=== PATIENT | female | born 1945 | race Caucasian/White ===

== ENCOUNTER 2019-04-13 14:18 | Observation (INO) | payer MEDICARE, BC ==
[~2019-04-13] VITALS: Ht 152.4 cm; Wt 93.6 kg
[~2019-04-13 14:18] MED LIST: ACIDOPHILUS1 EAC2 PO; ADVAIR 100-501 EACH INH; ALEVE220 M1 PO; ATORVASTATIN CA20 MG PO; BISOPROLOL FUMAR5 MG PO; CALTRATE 600 W1 EACH PO; CENTRUM SILVER1 EAC3 PO; DIOVAN HCT 1601 EACH PO; FERROUSUL325 MG PO; FISH OIL500 M1 PO; FLOVENT DISKUS50 MCG INH; FUROSEMIDE20 MG PO; IMODIUM2 MG PO; KLOR-CON 1010 MEQ PO; LOVENOX60 MG/0.6 SC; MERCAPTOPURINE50 MG PO; PRILOSEC OTC20 MG PO; PROAIR HFA INH8.5 GM INH; PROLIA60 MG/1 ML INJ; RYTHMOL SR325 MG PO; SINGULAIR10 MG PO; SUCRALFATE1 GM PO; SULFASALAZINE500 MG PO; TYLENOL325 MG PO; VITAMIN E1000 UNI1 PO; WARFARIN SODIUM3 MG PO
--- OUTSIDE RECORDS SUMMARY | 2019-04-13 14:20 | XMS REPORT | Clinical Summary ---
Author Author [facility] Organization [facility] Address Unknown Phone Unavailable Care Team Providers Care Bag Sewer Name Role Phone Ya Alicia MD PCP Allergies Comments Active Allergy Reactions Severity Noted Date Azithromycin Other (See 04/07/2017 Comments) Medications End Date Status Medication Sig Dispensed Refills Start Date Active BREO ELLIPTA 200-25 INHALE 1 PUFF 2 mcg/dose blister with BY MOUTH 7 device powder for EVERY DAY inhalation Active furosemide (LASIX) 40 mg TK 1 T PO 3 tablet BID 7 Active enoxaparin (LOVENOX) 80 0 mg/0.8 mL syringe 7 Active metoprolol tartrate TK 1 T PO BID 3 (LOPRESSOR) 100 mg tablet 7 Active montelukast (SINGULAIR) 0 10 mg tablet 7 Active potassium chloride TK 1 T PO 3 (K-DUR) 20 MEQ CR tablet BID 7 Active sulfaSALAzine Take 1,000 mg 3 (AZULFIDINE) 500 mg by mouth 2 7 tablet (two) times a day. Active INCRUSE ELLIPTA 62.5 INHALE 1 PUFF 2 mcg/actuation blister BY MOUTH 7 with device EVERY DAY Active beclomethasone 1 puff into 0 dipropionate (QNASL) 40 each nostril mcg/actuation HFA aerosol daily. inhaler Active propafenone SR (RYTHMOL Take 225 mg 0 SR) 225 MG 12 hr capsule by mouth 3 (three) times a day. Active warfarin (COUMADIN) 5 MG Take 1 tablet 30 tablet 0 tablet (5 mg total) 7 by mouth once daily for 30 days. Active Problems Not on file Family History Medical History Relation Name Comments Cancer Father Hyperlipidemia Father Asthma Mother Cancer Mother Heart disease Mother Hypertension Mother Relation Name Status Comments Father Mother Social History Date Tobacco Use Types Packs/Day Years Used Never Smoker Alcohol Use Drinks/Week oz/Week Comments No Sex Assigned at Date Recorded Not on file Industry Job Start Date Occupation Not on file Not on file Not on file Travel End Travel History Travel Start No recent travel history available. Last Filed Vital Signs Not on file Plan of Treatment Not on file Results Not on fileafter 04/12/2018 Insurance Type Payer Benefit Subscriber ID Effective Phone Address Plan / Dates Group Medicare MEDICARE MEDICARE xxxxxxxxxx 2010-P CANALES, PART A AND resent [place] B Indemnity BCBS BCBS xxxxxxxxxxxx 2012-P PAR/TRAD resent PLAN Advance Directives Patient has advance care planning documents on file. For more information, tracie brown contact: Jose D Carrero [address] [place] [address]
--- OUTSIDE RECORDS SUMMARY | 2019-04-13 14:21 | XMS REPORT ---
Author Author Bernard Redding Organization [employer] Address Unknown Phone Unavailable Care Team Providers Care Control Director Name Role Phone Bernard Redding CP Unavailable Allergies No Known Allergies Problems Problem Type Condition Code Onset Dates Condition Status Assessment Polyarthritis M13.0 Active Problem Vitamin D deficiency E55.9 Active Problem Osteoporosis M81.0 Active Problem Long-term use of high-risk medication Z79.899 Active Problem Osteopenia of multiple sites M85.89 Active Problem Polyarthritis M13.0 Active Problem Lumbago M54.5 Active Problem Inflammatory arthritis M19.90 Active Problem Polyarthralgia M25.50 Active Assessment Vitamin D deficiency E55.9 Active Assessment Long-term use of high-risk medication Z79.899 Active Assessment Osteoporosis M81.0 Active Assessment Inflammatory arthritis M19.90 Active Assessment Osteopenia of multiple sites M85.89 Active Assessment Polyarthralgia M25.50 Active Medications No Known Medications Results No Known Results Summary Purpose [employer] Submission
--- OUTSIDE RECORDS SUMMARY | 2019-04-13 14:21 | XMS REPORT ---
Author Author Christiane Angel [facility] [employer] Address Unknown Phone Unavailable Care Team Providers Care Crop Setting Out Machine Operator Name Role Phone Christiane Angel CP Unavailable Allergies No Known Allergies Problems Problem Type Condition Code Onset Dates Condition Status Problem Inflammatory arthritis M19.90 Active Problem Age related osteoporosis M81.0 Active Problem Long-term use of high-risk medication Z79.899 Active Problem Polyarthralgia M25.50 Active Problem Vitamin D deficiency E55.9 Active Problem Polyarthritis M13.0 Active Problem Lumbago M54.5 Active Medications Medication Code System Code Instructions Start Date End Date Status Dosage Methotrexate Sodium [facility] [address]-96 25 MG/ML Injection once a week Jun 15, 2018 Active inject 0.4 cc subcutaneously Folic Acid [facility] 78706361937 1 MG Orally Once a day Jun 15, 2018 Active 1 tablet Results No Known Results Summary Purpose [employer] Submission
--- OUTSIDE RECORDS SUMMARY | 2019-04-13 14:21 | XMS REPORT ---
Author Author Meena Herr [facility] [employer] Address Unknown Phone Unavailable Care Team Providers Care Chief Accountant Name Role Phone Meena Herr Unavailable Allergies, Adverse Reactions, Alerts Substance Reaction Event Type Levofloxacin Info Not Available Drug Allergy Erythromycin Info Not Available Drug Allergy Zithromax Info Not Available Non Drug Allergy vytorin Info Not Available Non Drug Allergy trilisate Info Not Available Non Drug Allergy univasc Info Not Available Non Drug Allergy Boniva Injection stomach upset Non Drug Allergy Forteo completed 2 year therapy Non Drug Allergy Ciprofloxacin, any macrolide abx Info Not Available Non Drug Allergy Problems Problem Type Condition Code Onset Dates Condition Status Assessment Long-term use of high-risk medication Z79.899 Active Assessment Inflammatory arthritis M19.90 Active Assessment Age related osteoporosis M81.0 Active Assessment Lumbago M54.5 Active Assessment Vitamin D deficiency E55.9 Active Problem Inflammatory arthritis M19.90 Active Problem Age related osteoporosis M81.0 Active Problem Long-term use of high-risk medication Z79.899 Active Problem Polyarthralgia M25.50 Active Problem Vitamin D deficiency E55.9 Active Problem Polyarthritis M13.0 Active Problem Lumbago M54.5 Active Medications Medication Code System Code Instructions Start Date End Date Status Dosage Breo Ellipta [facility] 48604108211 100-25 MCG/INH Inhalation Once a day Active 1 puff Incruse Ellipta [facility] 16575946612 62.5 MCG/INH Inhalation Once a day Active 1 puff Cranberry-Vitamin C [facility] 08774890046 4200 MG Orally Once a day Active 2 tablets Caltrate 600+D [facility] 07112817841 600-400 MG-UNIT Orally Once a day Active 1 tablet with food Flax Seed Oil [facility] 25439177512 1000 MG Orally Active as directed Prilosec [facility] 06422910985 20 MG Orally Once a day Active 1 capsule Singulair [facility] 44801277117 10 MG Orally Once a day Active 1 tablet in the evening Lopressor [facility] 83827281609 100 MG Orally Twice a day Active 1 tablet with food Vitamin D-3 ND 55429327047 5000 UNITS Orally Once a day Active 5 capsules Cyanocobalamin [facility] 16854868460 1000 MCG/ML Injection Active 1 ml Centrum Silver Ultra Womens [facility] 52079393870 Orally Active as directed Prolia [facility] 95752782986 60 MG/ML Subcutaneous Active as directed Fish Oil [facility] 92939006926 BID Active not defined Lasix ND 29533486470 40 MG Orally every other day Active 1 tablet Voltaren [facility] 90571135706 1 % Transdermal Four times a day December 19, 2017 Active 2 to 4 grams Klor-Con [address] [facility] 95856112707 10 MEQ Orally Every other day Active 1 tablet with food Sucralfate [facility] 71507012492 2 GM Orally Twice a day Active 1 tablet Azulfidine [facility] 65940468620 500 MG Orally TWICE A DAY Active 2 tablet Livalo [facility] 60904903864 2 MG Orally Once a day Active 1 tablet ProAir HFA [facility] 43087365084 108 (90 Base) MCG/ACT Inhalation PRN Active 2 puffs as needed Warfarin Sodium [facility] 64774419205 5 MG Orally Once a day Active 1 tablet Vitamin E [facility] 47009720998 1000 UNIT Orally Once a day Active 1 capsule Imodium A-D [facility] 04353858968 2 MG Orally PRN Active 1 tablet Probiotic Acidophilus [facility] 45272258731 Orally Active as directed Propafenone HCl [facility] 86123545470 225 MG Orally Three times a day Active 1 tablet Albuterol Sulfate HFA [facility] [address]-19 108 (90 Base) MCG/ACT Inhalation every 4 hrs Active 2 puffs as needed Ferrous Sulfate [facility] 05104346653 325 (65 Fe) MG Orally Once a day Active 1 tablet Vital Signs Date/Time: Sep 20, 2017 BMI 37.52 Index Weight 185.8 lbs Height 59 in Temperature 98.0 F Cardiac Monitoring Heart Rate 60 /min Blood Pressure Diastolic 72 mm Hg Blood Pressure Systolic 120 mm Hg Results No Known Results Summary Purpose [employer]ClinicalWorks Submission
--- OUTSIDE RECORDS SUMMARY | 2019-04-13 14:21 | XMS REPORT ---
Author Author Bernard Redding Organization [employer] Address Unknown Phone Unavailable Care Team Providers Care Rabbit Fancier Name Role Phone Bernard Redding CP Unavailable Allergies No Known Allergies Problems Problem Type Condition Code Onset Dates Condition Status Assessment Inflammatory arthritis M19.90 Active Problem Inflammatory arthritis M19.90 Active Problem Age related osteoporosis M81.0 Active Problem Long-term use of high-risk medication Z79.899 Active Problem Polyarthralgia M25.50 Active Problem Vitamin D deficiency E55.9 Active Problem Polyarthritis M13.0 Active Problem Lumbago M54.5 Active Medications Medication Code System Code Instructions Start Date End Date Status Dosage Voltaren [facility] 34140935556 1 % Transdermal Four times a day December 19, 2017 Active 2 to 4 grams Results No Known Results Summary Purpose [employer] Submission
--- OUTSIDE RECORDS SUMMARY | 2019-04-13 14:21 | XMS REPORT ---
Author Author Christiane Angel [facility] [employer] Address Unknown Phone Unavailable Care Team Providers Care Occasional Babysitter Name Role Phone Christiane Angel Unavailable Allergies, Adverse Reactions, Alerts Substance Reaction Event Type Levofloxacin Info Not Available Drug Allergy Erythromycin Info Not Available Drug Allergy Boniva Injection stomach upset Non Drug Allergy Forteo completed 2 year therapy Non Drug Allergy Ciprofloxacin, any macrolide abx Info Not Available Non Drug Allergy Zithromax Info Not Available Non Drug Allergy vytorin Info Not Available Non Drug Allergy trilisate Info Not Available Non Drug Allergy univasc Info Not Available Non Drug Allergy Problems Problem Type Condition Code Onset Dates Condition Status Assessment Long-term use of high-risk medication Z79.899 Active Assessment Age related osteoporosis M81.0 Active Assessment Inflammatory arthritis M19.90 Active Problem Inflammatory arthritis M19.90 Active Problem Age related osteoporosis M81.0 Active Problem Long-term use of high-risk medication Z79.899 Active Problem Polyarthralgia M25.50 Active Problem Vitamin D deficiency E55.9 Active Problem Polyarthritis M13.0 Active Problem Lumbago M54.5 Active Medications Medication Code System Code Instructions Start Date End Date Status Dosage Cyanocobalamin [facility] 16352184214 1000 MCG/ML Injection Active 1 ml Centrum Silver Ultra Womens [facility] 74921529865 Orally Active as directed Breo Ellipta [facility] 63707618467 100-25 MCG/INH Inhalation Once a day Active 1 puff Lopressor ND 93705802017 100 MG Orally Twice a day Active 1 tablet with food Singulair ND 76533680385 10 MG Orally Once a day Active 1 tablet in the evening Vitamin D-3 ND 92057688952 5000 UNITS Orally Once a day Active 5 capsules Livalo ND 20632673773 2 MG Orally Once a day Active 1 tablet Vitamin E ND 21236528396 1000 UNIT Orally Once a day Active 1 capsule Incruse Ellipta [facility] 32126343771 62.5 MCG/INH Inhalation Once a day Active 1 puff Probiotic Acidophilus [facility] 99800037420 Orally Active as directed Voltaren [facility] 63640315508 1 % Transdermal Four times a day December 19, 2017 Active 2 to 4 grams Sucralfate ND 71893639628 2 GM Orally Twice a day Active 1 tablet Cranberry-Vitamin C [facility] 06207065817 4200 MG Orally Once a day Active 2 tablets Imodium A-D [facility] 02555093567 2 MG Orally PRN Active 1 tablet Albuterol Sulfate HFA [facility] [address]-65 108 (90 Base) MCG/ACT Inhalation every 4 hrs Active 2 puffs as needed Warfarin Sodium ND 63203258615 5 MG Orally Once a day Active 1 tablet Azulfidine [facility] 00649446393 500 MG Orally three times A DAY Aug 08, 2018 Active 2 tablet Klor-Con [address] [facility] 15135796906 10 MEQ Orally Every other day Active 1 tablet with food ProAir HFA [facility] 88746420196 108 (90 Base) MCG/ACT Inhalation PRN Active 2 puffs as needed Ferrous Sulfate [facility] 91220842328 325 (65 Fe) MG Orally Once a day Active 1 tablet Flax Seed Oil [facility] 82149146167 1000 MG Orally Active as directed Caltrate 600+D [facility] 81442148500 600-400 MG-UNIT Orally Once a day Active 1 tablet with food Fish Oil [facility] 81938490622 BID Active not defined Lasix [facility] 56538389833 40 MG Orally every other day Active 1 tablet Prolia [facility] 54758323515 60 MG/ML Subcutaneous Active as directed Prilosec [facility] 44157502418 20 MG Orally Once a day Active 1 capsule Vital Signs Date/Time: April 10, 2018 BMI 37.10 Index Weight 190 lbs Height 60 in Temperature 98.0 F Cardiac Monitoring Heart Rate 64 /min Blood Pressure Diastolic 62 mm Hg Blood Pressure Systolic 122 mm Hg Results No Known Results Summary Purpose [employer]Works Submission
--- OUTSIDE RECORDS SUMMARY | 2019-04-13 14:21 | XMS REPORT ---
Author Author Bernard Redding Organization [employer] Address Unknown Phone Unavailable Care Team Providers Care Data Governance Consultant Name Role Phone Bernard Redding CP Unavailable Allergies No Known Allergies Problems Problem Type Condition Code Onset Dates Condition Status Problem Inflammatory arthritis M19.90 Active Problem Age related osteoporosis M81.0 Active Problem Long-term use of high-risk medication Z79.899 Active Problem Polyarthralgia M25.50 Active Problem Vitamin D deficiency E55.9 Active Problem Polyarthritis M13.0 Active Problem Lumbago M54.5 Active Medications No Known Medications Results No Known Results Summary Purpose [employer]Works Submission
--- OUTSIDE RECORDS SUMMARY | 2019-04-13 14:21 | XMS REPORT ---
Author Author Bernard Redding Organization [employer] Address Unknown Phone Unavailable Care Team Providers Care Pipe Insulator Helper Name Role Phone Bernadr Redding CP Unavailable Allergies No Known Allergies [...]
--- OUTSIDE RECORDS SUMMARY | 2019-04-13 14:21 | XMS REPORT | Continuity of Care Document ---
Author Author [facility] [employer] Address Unknown Phone Unavailable Care Team Providers Care Supply Chain Logistics Manager Name Role Phone [employer] Unavailable Unavailable Problems Problem Status Onset Date Classification Date Reported Comments Source Inflammatory arthritis Active Problem 03/30/2019 Vikram Redding Age related osteoporosis Active Diagnosis 10/27/2018 Vikram Redding Long-term use of high-risk medication Active Problem 03/30/2019 Vikram Redding Polyarthralgia Active Problem 03/30/2019 Vikram Redding Vitamin D deficiency Active Problem 03/30/2019 Vikram Redding Polyarthritis Active Diagnosis 03/30/2019 Vikram Redding Lumbago Active Problem 03/30/2019 Vikram Redding Osteoporosis Active Problem 03/30/2019 Vikram Redding Osteopenia of multiple sites Active Problem 03/30/2019 Vikram Redding Medications Medication Details Route Status Patient Instructions Ordering Provider Order Date Source Azulfidine 2 tablet Orally Active 500 MG Orally three times A DAY Jeanne 08/08/2018 Vikram Redding Methotrexate Sodium inject 0.4 cc subcutaneously Injection Active 25 MG/ML Injection once a week Jeanne 06/15/2018 Vikram Redding Folic Acid 1 tablet Orally Active 1 MG Orally Once a day Jeanne 06/15/2018 Vikram Redding Voltaren 2 to 4 grams Transdermal Active 1 % Transdermal Four times a day Jeanne 12/19/2017 Vikram Redding Cyanocobalamin 1 ml Injection Active 1000 MCG/ML Injection Jeanne Vikram Redding Centrum Silver Ultra Womens as directed Orally Active Orally Jeanne Vikram Redding Breo Ellipta 1 puff Inhalation Active 100-25 MCG/INH Inhalation Once a day Jeanne Vikram Redding Lopressor 1 tablet with food Orally Active 100 MG Orally Twice a day Jeanne Vikram Redding Singulair 1 tablet in the evening Orally Active 10 MG Orally Once a day Jeanne Vikram Redding Vitamin D-3 5 capsules Orally Active 5000 UNITS Orally Once a day Jeanne Vikram Redding Livalo 1 tablet Orally Active 2 MG Orally Once a day Jeanne Vikram Redding Vitamin E 1 capsule Orally Active 1000 UNIT Orally Once a day Jeanne Vikram Redding Incruse Ellipta 1 puff Inhalation Active 62.5 MCG/INH Inhalation Once a day Jeanne Vikram Redding Probiotic Acidophilus as directed Orally Active Orally Jeanne Vikram Redding Sucralfate 1 tablet Orally Active 2 GM Orally Twice a day Jeanne Vikram Redding Cranberry-Vitamin C 2 tablets Orally Active 4200 MG Orally Once a day Jeanne Vikram Redding Imodium A-D 1 tablet Orally Active 2 MG Orally PRN Jeanne Vikram Redding Albuterol Sulfate HFA 2 puffs as needed Inhalation Active 108 (90 Base) MCG/ACT Inhalation every 4 hrs Jeanne Vikram Redding Warfarin Sodium 1 tablet Orally Active 5 MG Orally Once a day Jeanne Vikram Redding Klor-Con 10 1 tablet with food Orally Active 10 MEQ Orally Every other day Jeanne Vikram Redding ProAir HFA 2 puffs as needed Inhalation Active 108 (90 Base) MCG/ACT Inhalation PRN Jeanne Vikram Redding Ferrous Sulfate 1 tablet Orally Active 325 (65 Fe) MG Orally Once a day Jeanne Vikram Redding Flax Seed Oil as directed Orally Active 1000 MG Orally Jeanne Vikram Redding Caltrate 600+D 1 tablet with food Orally Active 600-400 MG-UNIT Orally Once a day Jeanne Vikram Redding Fish Oil not defined NA Active BID Jeanne Vikram Redding Lasix 1 tablet Orally Active 40 MG Orally every other day Jeanne Vikram Redding Prolia as directed Subcutaneous Active 60 MG/ML Subcutaneous Jeanne Vikram Redding Prilosec 1 capsule Orally Active 20 MG Orally Once a day Jeanne Vikram Redding Azulfidine 2 tablet Orally Active 500 MG Orally TWICE A DAY Jeanne Vikram Redding Propafenone HCl 1 tablet Orally Active 225 MG Orally Three times a day Nemesio Redding Methotrexate Sodium inject 0.4 cc subcutaneously Injection Active 25 MG/ML Injection once a week Jeanne Vikram Redding Levaquin 1 tablet Orally Active 500 MG Orally Once a day Jeanne Vikram Redding Folic Acid 1 tablet Orally Active 1 MG Orally Once a day Jeanne Vikram Redding Escitalopram Oxalate 1 tablets Orally Active 5 MG Orally Once a day Jeanne Vikram Redding Folic Acid TAKE 1 TABLET BY MOUTH EVERY DAY NA Active 1 MG Jeanne Vikram Redding Melatonin 1 tablet at bedtime as needed with food Orally Active 3 MG Orally Once a day Jeanne Vikram Redding Allergies, Adverse Reactions, Alerts Substance Category Reaction Severity Reaction type Status Date Reported Comments Source Levofloxacin Adverse Reaction Info Not Available Adverse Reaction Active 10/18/2018 Vikram Redding Erythromycin Adverse Reaction Info Not Available Adverse Reaction Active 10/18/2018 Vikram Redding Boniva Injection Adverse Reaction stomach upset Adverse Reaction Active 10/18/2018 Vikram Redding Forteo Adverse Reaction completed 2 year therapy 2000's Adverse Reaction Active 10/18/2018 Vikram Redding Ciprofloxacin, any macrolide abx Adverse Reaction Info Not Available Adverse Reaction Active 10/18/2018 Vikram Redding Zithromax Adverse Reaction Info Not Available Adverse Reaction Active 10/18/2018 Vikram Redding vytorin Adverse Reaction Info Not Available Adverse Reaction Active 10/18/2018 Vikram Redding trilisate Adverse Reaction Info Not Available Adverse Reaction Active 10/18/2018 Vikram Redding univasc Adverse Reaction Info Not Available Adverse Reaction Active 10/18/2018 Vikram Redding Immunizations No Data Provided for This Section Results No Data Provided for This Section Pathology Reports No Data Provided for This Section Diagnostic Reports No Data Provided for This Section Consultation Notes No Data Provided for This Section Discharge Summaries No Data Provided for This Section History and Physicals No Data Provided for This Section Vital Signs Vital Sign Value Date Comments Source Weight 192.3 10/18/2018 Vikram Redding Height 61 10/18/2018 Vikram Redding Temperature Oral (F) 97.0 F 10/18/2018 Vikram Redding Heart Rate 60 10/18/2018 Vikram Redding Diastolic (mm Hg) 60 10/18/2018 Vikram Redding Systolic (mm Hg) 124 10/18/2018 Vikram Redding Weight 187 07/11/2018 Vikram Redding Height 69 07/11/2018 Vikram Redding Temperature Oral (F) 97.8 F 07/11/2018 Vikram Redding Heart Rate 60 07/11/2018 Vikram Redding Diastolic (mm Hg) 68 07/11/2018 Vikram Redding Systolic (mm Hg) 120 07/11/2018 Vikram Redding Weight 190 04/10/2018 Vikram Redding Height 60 04/10/2018 Vikram Redding Temperature Oral (F) 98.0 F 04/10/2018 Vikram Redding Heart Rate 64 04/10/2018 Vikram Redding Diastolic (mm Hg) 62 04/10/2018 Vikram Redding Systolic (mm Hg) 122 04/10/2018 Vikram Redding Weight 185.8 09/20/2017 Vikram Redding Height 59 09/20/2017 Vikram Redding Temperature Oral (F) 98.0 F 09/20/2017 Vikram Redding Heart Rate 60 09/20/2017 Vikram Redding Diastolic (mm Hg) 72 09/20/2017 Vikram Redding Systolic (mm Hg) 120 09/20/2017 Vikram Redding Encounters No Data Provided for This Section Procedures No Data Provided for This Section Assessment and Plan No Data Provided for This Section Plan of Care No Data Provided for This Section Social History No Data Provided for This Section Family History No Data Provided for This Section Advance Directives No Data Provided for This Section Functional Status No Data Provided for This Section
--- OUTSIDE RECORDS SUMMARY | 2019-04-13 14:21 | XMS REPORT ---
Author Author Christiane Angel [facility] eClinicalWorks Address Unknown Phone Unavailable Care Team Providers Care [employer] Name Role Phone Christiane Angel Unavailable Allergies, [...] Status Assessment Inflammatory arthritis M19.90 Active Problem Vitamin D deficiency E55.9 Active Assessment Age related osteoporosis M81.0 Active Assessment Long-term use of high-risk medication Z79.899 Active Problem Osteoporosis M81.0 Active Problem Long-term use of high-risk medication Z79.899 Active Problem Osteopenia of multiple sites M85.89 Active Problem Polyarthritis M13.0 Active Problem Lumbago M54.5 Active Problem Inflammatory arthritis M19.90 Active Problem Polyarthralgia M25.50 Active Medications Medication Code System Code Instructions Start Date End Date Status Dosage Fish Oil [facility] 29516623453 BID Active not defined Prilosec [facility] 25573787162 20 MG Orally Once a day Active 1 capsule Prolia [facility] 99588482860 60 MG/ML Subcutaneous Active as directed Escitalopram Oxalate ND 51089095784 5 MG Orally Once a day Active 1 tablets Klor-Con 10 [facility] 13495844127 10 MEQ Orally Every other day Active 1 tablet with food Warfarin Sodium [facility] 52812547428 5 MG Orally Once a day Active 1 tablet Centrum Silver Ultra Womens [facility] 33873499347 Orally Active as directed Singulair [facility] 71706778020 10 MG Orally Once a day Active 1 tablet in the evening Methotrexate Sodium [facility] [address]-64 25 MG/ML Injection once a week Active inject 0.4 cc subcutaneously Vitamin D-3 [facility] 59300747642 5000 UNITS Orally Once a day Active 5 capsules Breo Ellipta [facility] 31352859929 100-25 MCG/INH Inhalation Once a day Active 1 puff Incruse Ellipta [facility] 74290257589 62.5 MCG/INH Inhalation Once a day Active 1 puff Albuterol Sulfate HFA [facility] [address]-98 108 (90 Base) MCG/ACT Inhalation every 4 hrs Active 2 puffs as needed Vitamin E [facility] 02793994909 1000 UNIT Orally Once a day Active 1 capsule Lasix [facility] 05395533652 40 MG Orally every other day Active 1 tablet Caltrate 600+D [facility] 71536116079 600-400 MG-UNIT Orally Once a day Active 1 tablet with food Folic Acid [facility] 05395562696 1 MG Active TAKE 1 TABLET BY MOUTH EVERY DAY Probiotic Acidophilus [facility] 44437426383 Orally Active as directed Cyanocobalamin [facility] 44097713032 1000 MCG/ML Injection Active 1 ml Azulfidine [facility] 40334338401 500 MG Orally TWICE A DAY Active 2 tablet Melatonin [facility] 01084718978 3 MG Orally Once a day Active 1 tablet at bedtime as needed with food Ferrous Sulfate [facility] 16627594608 325 (65 Fe) MG Orally Once a day Active 1 tablet Livalo [facility] 85547784775 2 MG Orally Once a day Active 1 tablet Levaquin [facility] 29764883924 500 MG Orally Once a day Active 1 tablet Cranberry-Vitamin C [facility] 82571072147 4200 MG Orally Once a day Active 2 tablets Flax Seed Oil [facility] 21909213560 1000 MG Orally Active as directed Lopressor [facility] 75719647725 100 MG Orally Twice a day Active 1 tablet with food Sucralfate [facility] 31045028925 2 GM Orally Twice a day Active 1 tablet Imodium A-D [facility] 77618684332 2 MG Orally PRN Active 1 tablet ProAir HFA [facility] 53438985590 108 (90 Base) MCG/ACT Inhalation PRN Active 2 puffs as needed Vital Signs Date/Time: Oct 18, 2018 BMI 36.33 Index Weight 192.3 lbs Height 61 in Temperature 97.0 F Cardiac Monitoring Heart Rate 60 /min Blood Pressure Diastolic 60 mm Hg Blood Pressure Systolic 124 mm Hg Results Name Result Date Reference Range Unit Abnormality Flag SEDIMENTATION RATE ----SEDIMENTATION RATE 8 [id number] 0-20 MM/HOUR CBC W/AUTO DIFF ----PLATELET COUNT 233 39647171 130-400 K/UL ----MCV 95.2 20217073 80.0-100.0 fL ----HEMATOCRIT 39.8 31256824 34.0-45.0 % ----BASOPHILS 0.6 57199724 0.0-2.0 % ----MCHC 33.7 08310786 32.0-35.5 G/DL ----EOSINOPHILS 2.5 31516070 0.0-7.0 % ----MCH 32.1 82082981 27.0-34.0 PG ----MONOCYTES 9.1 79599251 4.0-13.0 % ----WBC 6.5 32207879 4.0-11.0 K/UL ----HEMOGLOBIN 13.4 11193935 11.5-15.5 G/DL ----RBC 4.18 81014538 3.80-5.10 M/UL ----LYMPHOCYTES 19.7 80208675 19.0-48.0 % ----RDW 13.3 55467567 11.0-15.0 % ----NEUTROPHILS 68.1 49046803 40.0-74.0 % VITAMIN D, 25 OH ----VITAMIN D, 25 OH 71 20181018 SEE BELOW NG/ML COMPREHENSIVE METABOLIC PANEL ----SODIUM 140 75564064 133-146 MEQ/L ----CALC BUN/CREAT 21 20181018 6-28 RATIO ----CHLORIDE 102 97984925 95-107 MEQ/L ----POTASSIUM 4.7 09836307 3.5-5.4 MEQ/L ----CALCIUM 9.0 52552877 8.5-10.5 MG/DL ----PROTEIN, TOTAL 6.3 73630834 6.1-8.3 G/DL ----CARBON DIOXIDE 27 20181018 19-31 MEQ/L ----CALC A/G RATIO 1.6 20181018 1.0-2.6 RATIO ---- eGFR AMER. 100 58622090 >60 ML/MIN/1.73 ----BILIRUBIN, TOTAL 0.2 20181018 <=1.2 MG/DL ---- eGFR NON- AMER. 87 20181018 >60 ML/MIN/1.73 ----BUN 15 20181018 8-23 MG/DL ----ALBUMIN 3.9 20181018 3.5-5.2 G/DL ----CALC GLOBULIN 2.4 20181018 1.9-3.7 G/DL ----CREATININE 0.70 20181018 0.60-1.30 MG/DL ----ALT 25 20181018 5-40 U/L ----GLUCOSE 102 20181018 70-99 MG/DL H ----ALKALINE PHOSPHATASE 82 20181018 40-142 U/L ----AST 30 20181018 9-40 U/L C-REACTIVE PROTEIN ----C-REACTIVE PROTEIN 0.4 20181018 <0.5 MG/DL Summary Purpose eClinicalWorks Submission
--- OUTSIDE RECORDS SUMMARY | 2019-04-13 14:22 | XMS REPORT ---
Author Author Christiane Angel [facility] eClinicalWorks Address Unknown Phone Unavailable Care Team Providers Care [employer] Name Role Phone Christiane Angel Unavailable Allergies, [...] Active Assessment Age related osteoporosis M81.0 Active Problem Inflammatory arthritis M19.90 Active Problem Age related osteoporosis M81.0 Active Problem Long-term use of high-risk medication Z79.899 Active Problem Polyarthralgia M25.50 Active Problem Vitamin D deficiency E55.9 Active Problem Polyarthritis M13.0 Active Problem Lumbago M54.5 Active Medications Medication Code System Code Instructions Start Date End Date Status Dosage ProAir HFA [facility] 80585458443 108 (90 Base) MCG/ACT Inhalation PRN Active 2 puffs as needed Breo Ellipta [facility] 44155608392 100-25 MCG/INH Inhalation Once a day Active 1 puff Imodium A-D [facility] 31381666178 2 MG Orally PRN Active 1 tablet Caltrate 600+D ND 08291066281 600-400 MG-UNIT Orally Once a day Active 1 tablet with food Centrum Silver Ultra Womens ND 16379265714 Orally Active as directed Flax Seed Oil [facility] 67117941393 1000 MG Orally Active as directed Probiotic Acidophilus [facility] 37494892989 Orally Active as directed Methotrexate Sodium [facility] [address]-41 25 MG/ML Injection once a week Active inject 0.4 cc subcutaneously Cranberry-Vitamin C [facility] 01115511581 4200 MG Orally Once a day Active 2 tablets Azulfidine [facility] 38155676608 500 MG Orally TWICE A DAY Active 2 tablet Cyanocobalamin [facility] 90960223217 1000 MCG/ML Injection Active 1 ml Vitamin E [facility] 14554059248 1000 UNIT Orally Once a day Active 1 capsule Levaquin [facility] 24841058736 500 MG Orally Once a day Active 1 tablet Lasix [facility] 30625986478 40 MG Orally every other day Active 1 tablet Folic Acid [facility] 15591145621 1 MG Orally Once a day Active 1 tablet Prolia [facility] 79285408244 60 MG/ML Subcutaneous Active as directed Sucralfate ND 75723929519 2 GM Orally Twice a day Active 1 tablet Escitalopram Oxalate [facility] 29861408490 5 MG Orally Once a day Active 1 tablets Livalo [facility] 48879053204 2 MG Orally Once a day Active 1 tablet Vitamin D-3 [facility] 71974398400 5000 UNITS Orally Once a day Active 5 capsules Prilosec [facility] 99107914677 20 MG Orally Once a day Active 1 capsule Klor-Con 10 [facility] 31339115003 10 MEQ Orally Every other day Active 1 tablet with food Fish Oil [facility] 46537888814 BID Active not defined Lopressor [facility] 07963662152 100 MG Orally Twice a day Active 1 tablet with food Singulair [facility] 32271829322 10 MG Orally Once a day Active 1 tablet in the evening Ferrous Sulfate [facility] 30461814214 325 (65 Fe) MG Orally Once a day Active 1 tablet Incruse Ellipta [facility] 37398690717 62.5 MCG/INH Inhalation Once a day Active 1 puff Warfarin Sodium [facility] 91540622412 5 MG Orally Once a day Active 1 tablet Albuterol Sulfate HFA [facility] [address]-57 108 (90 Base) MCG/ACT Inhalation every 4 hrs Active 2 puffs as needed Vital Signs Date/Time: Jul 11, 2018 BMI 27.61 Index Weight 187 lbs Height 69 in Temperature 97.8 F Cardiac Monitoring Heart Rate 60 /min Blood Pressure Diastolic 68 mm Hg Blood Pressure Systolic 120 mm Hg Results No Known Results Summary Purpose eClinicalWorks Submission
--- OUTSIDE RECORDS SUMMARY | 2019-04-13 14:22 | XMS REPORT ---
Author Author [facility] Address Unknown Phone Unavailable Care Team Providers Care Medical Consultant Name Role Phone Unavailable Unavailable Payers Payer Name Policy Type Policy Number Effective Date Expiration Date Problems This patient has no known problems. Allergies, Adverse Reactions, Alerts This patient has no known allergies or adverse reactions. Medications This patient has no known medications. Encounters Start Date/Time End Date/Time Encounter Type Admission Type Attending Clinicians Care Facility Care Department Encounter ID 2019-04-04 13:35:24 Outpatient [id number] Results Test Description Test Time Test Comments Text Results Atomic Results Result Comments DIAG MAMM LEFT VERNON CAD DIGITAL 2019-03-14 10:48:55 - DIAG MAMM LEFT VERNON CAD DIGITALUNILATERAL LEFT DIGITAL DIAGNOSTIC MAMMOGRAM 3D/2D WITH CAD: 03/14/2019CLINICAL: 6 Month follow-up. Digital breast tomosynthesis was performed in addition to routine CC and MLO views. Current mammographic images were evaluated by either a [employer] M-Vu or a [employer] ImageChecker CAD (computer aided detection system). Comparison is made to exams dated 07/21/2018 mammogram, 07/20/2017 mammogram, and 04/01/2016 mammogram - [facility] There are scattered fibroglandular tissues in the left breast. Grouped coarse calcifications in the left breast, retroareolar plane, approximately 12 cm from the nipple, is stable since 2017, benign. No suspicious mass, architectural distortion, malignant type calcification, or lymph node abnormality detected. IMPRESSION: BENIGNThere is no mammographic evidence of malignancy. Resume annual screening mammography, which is due in 08/2019.Fidencio Aparicio M.D. ss/:03/14/2019 10:48:55 copy to: Ya Alicia MD, ph: [phone], fax: [phone] Technologist: Lucia GARAY, [facility]- FWletter sent: BIRADS 1-2 Normal Mammogram BI-RADS: 2 Benign DIAG MAMM LEFT CAD DIGITAL 2018-08-10 15:00:28 - DIAG MAMM LEFT CAD DIGITALUNILATERAL LEFT DIGITAL DIAGNOSTIC MAMMOGRAM WITH CAD: 08/10/2018CLINICAL: Recall from screening. Current mammographic images were evaluated by either a [employer] M-Vu or a [employer] ImageChecker CAD (computer aided detection system). Comparison is made to exams dated 07/21/2018 mammogram, 07/20/2017 mammogram, and 04/01/2016 mammogram - [facility]-. There are scattered fibroglandular tissues in the left breast. There is a group of heterogeneous calcifications in the left breast, central to the nipple, posterior depth. This finding is unchanged since prior screening mammogram from 2017.No other significant masses or calcifications are seen in the breast. IMPRESSION: PROBABLY BENIGNGrouped heterogeneous calcifications in the central left breast at posterior depth is stable since 2017 and is probably benign. A follow-up mammogram with magnification views in 6 months is recommended to demonstrate stability. Carlos Whitehead M.D. el/:08/10/2018 15:00:28 copy to: Ya Alicia MD, ph: [phone], fax: [phone] Technologist: Trista Sylvester , [facility]-letter sent: Short Term Follow Up Mammogram BI-RADS: 3 Probably benign
[2019-04-13 15:06] LABS: BILIRUBIN,URINE NEGATIVE (NEGATIVE); CLARITY,URINE SL CLOUDY (CLEAR); COLOR,URINE YELLOW (YELLOW); LEUKOCYTE ESTERASE ,URINE NEGATIVE (NEGATIVE); NITRITE,URINE NEGATIVE (NEGATIVE); PROTEIN,URINE DIPSTICK TRACE (NEGATIVE); URINE UROBILINOGEN 0.2 mg/dL (0.2 - 1)
[2019-04-13 15:19] LABS: KETONES,URINE 2+ (NEGATIVE)
[2019-04-13] MEDS ORDERED: ONDANSETRON HCL INJ 2MG/ML 2ML 2 MG/ML VIAL IV STA (15:20)
[2019-04-13 15:23] LABS: BACTERIA,URINE MODERATE /HPF; EPITHELIAL CELLS,URINE MODERATE /LPF
[2019-04-13] MEDS ORDERED: SODIUM CHLORIDE 0.9% 1000ML 1,000 ML IV ONE (15:30)
[2019-04-13] MEDS ORDERED: MORPHINE SULFATE INJ 4 MG/ML INJ 1ML IV PRN ×2 (15:30→20:45)
[2019-04-13] MEDS ORDERED: ONDANSETRON HCL 4 MG ORAL DISINTEGRATING TAB PO ONE (16:45)
[2019-04-13] MEDS ORDERED: MORPHINE SULFATE INJ 4 MG/ML INJ 1ML IM PRN (16:45)
[2019-04-13 17:09] LABS: BASOPHILS % 0.2 % (0.0-1.0); EOSINOPHILS # (AUTO) 0.1 (0.0-0.4); EOSINOPHILS % 0.3 % (0.0-6.0); HEMATOCRIT 42.5 % (34.2-44.1); HEMOGLOBIN 13.8 g/dL (12.0-16.0); LYMPHOCYTES % 5.7 % (18.0-39.1); MEAN CORPUSCULAR HEMOGLOBIN 31.4 pg (28-32); MEAN CORPUSCULAR HGB CONC 32.5 g/dL (31-35); MEAN CORPUSCULAR VOLUME 96.8 fL (81-99); MONOCYTES # (AUTO) 1.1 (0.2-0.8); MONOCYTES % 6.4 % (4.4-11.3); NEUTROPHILS # (AUTO) 14.6 (2.1-6.9); NEUTROPHILS % 86.9 % (38.7-80.0); PLATELET COUNT 213 x10e3/uL (140-360); RED BLOOD COUNT 4.39 x10e6/uL (3.6-5.1); RED CELL DISTRIBUTION WIDTH 13.2 % (11.7-14.4)
[2019-04-13 17:18] LABS: INR 1.64
[2019-04-13 17:19] LABS: PARTIAL THROMBOPLASTIN TIME 39.4 seconds (23.8-35.5)
[2019-04-13 17:27] LABS: ALANINE AMINOTRANSFERASE 32 IU/L (0-55); ALBUMIN 3.7 g/dL (3.5-5.0); ALBUMIN/GLOBULIN RATIO 1.2 (0.8-2.0); ALKALINE PHOSPHATASE 66 IU/L (40-150); BLOOD UREA NITROGEN 14 mg/dL (7-26); BUN/CREATININE RATIO 21 (6-25); CALCIUM 9.4 mg/dL (8.4-10.2); CARBON DIOXIDE 27 mmol/L (22-29); CHLORIDE 102 mmol/L (98-107); CREATININE, SERUM 0.67 mg/dL (0.57-1.11); EST GLOMERULAR FILTRATION RATE > 60 ML/MIN (60-); GLUCOSE 111 mg/dL (74-118); SODIUM 139 mmol/L (136-145)
[2019-04-13 17:30] LABS: AMYLASE 28 U/L (25-125)
[2019-04-13 17:44] LABS: LIPASE 13 U/L (8-78)
[2019-04-13] MEDS ORDERED: PROPOFOL IV EMULSION 10 MG/ML 20 ML VIAL ONE (18:00)
[2019-04-13] MEDS ORDERED: NEOSTIGMINE 5 MG/5ML SYR ONE (18:00)
[2019-04-13] MEDS ORDERED: GLYCOPYRROLATE INJ 1MG/ 5 ML SYR ONE (18:00)
[2019-04-13] MEDS ORDERED: ONDANSETRON HCL INJ 2MG/ML 2ML 2 MG/ML VIAL ONE (18:00)
[2019-04-13] MEDS ORDERED: DEXAMETHASONE SOD PHOS INJ 4 MG/ML VIAL ONE (18:00)
[2019-04-13] MEDS ORDERED: LIDOCAINE HCL 2% LOCAL INJ 5 ML SDV VIAL INJ ONE (18:00)
[2019-04-13] MEDS ORDERED: ROCURONIUM BROMIDE 10 MG/ML 5ML VIAL ONE (18:00)
--- NOTE | 2019-04-13 18:37 | Diagnostic Imaging Report ---
EXAM: CT Abdomen and Pelvis WITH contrast INDICATION: ^abd pain, bloated, r/o colitis, obstruction COMPARISON: None. TECHNIQUE: Abdomen and pelvis were scanned utilizing a multidetector helical scanner from the lung base to the pubic symphysis after administration of IV contrast. Coronal and sagittal reformations were obtained. Routine protocol was performed. Scan was performed when during portal venous phase. IV CONTRAST: 100 mL of Isovue 370 ORAL CONTRAST: Water COMPLICATIONS: None RADIATION DOSE: Total DLP: 730.2 mGy*cm Estimated effective dose: (DLP x 0.015 x size factor) mSv CTDIvol has been reviewed. It is below the limits set by the Radiation Protocol Committee (RPC). Dose modulation, iterative reconstruction, and/or weight based adjustment of the mA/kV was utilized to reduce the radiation dose to as low as reasonably achievable. FINDINGS: LINES and TUBES: Median sternotomy wires. LOWER THORAX: Fibrotic changes in the lung bases. Extrapleural fatty proliferation adjacent to the vertebrae. HEPATOBILIARY: The liver is diffuse hypodense compared to the spleen, consistent with diffuse hepatic diffuse hepatic steatosis. No focal hepatic lesions. No biliary ductal dilation. GALLBLADDER: No radio-opaque stones or sludge. No wall thickening. SPLEEN: No splenomegaly. PANCREAS: No focal masses or ductal dilatation. ADRENALS: No adrenal nodules KIDNEYS/URETERS: Kidneys enhance symmetrically. No hydronephrosis. No cystic or solid mass lesions. No stones. GI TRACT: No abnormal distention, wall thickening, or evidence of bowel obstruction. There are diverticula within the colon without evidence of diverticulitis. Submucosal fatty infiltration of the colon. No significant stool. Appendix is prominent fluid-filled measuring up to 1.5 cm. There is surrounding periappendiceal inflammatory changes. PELVIC ORGANS/BLADDER: Unremarkable. Pelvic floor prolapse. LYMPH NODES: No lymphadenopathy. VESSELS: There is moderate atherosclerotic disease in the aorta and major arterial branches. PERITONEUM / RETROPERITONEUM: No free air or fluid. BONES: Unremarkable. SOFT TISSUES: Unremarkable. IMPRESSION: 1. Findings of acute appendicitis without evidence of rupture. No free fluid. 2. Diffuse hepatic steatosis. 3. Pelvic floor prolapse. Critical results were called to Dr. Rodriges by Dr. Hwang on 04/13/2019 at 6:32 PM. Signed by: Dr. Manuel Hwang M.D. on 04/13/2019 6:33 PM
[2019-04-13] MEDS ORDERED: CEFEPIME 1GM/NS 0.9% 50 ML 50 ML IV STA (18:38)
[2019-04-13] MEDS ORDERED: METRONIDAZOLE 500MG/NS 100ML 100 ML IV STA (18:38)
[2019-04-13] MEDS ORDERED: MORPHINE SULFATE 2 MG/ML SYR 1ML IV PRN (20:30)
[2019-04-13] MEDS ORDERED: CEFEPIME HCL 1 GM VIAL IV SCH (20:30)
[2019-04-13] MEDS ORDERED: ONDANSETRON HCL INJ 2MG/ML 2ML 2 MG/ML VIAL IV PRN (20:30)
--- OUTSIDE RECORDS SUMMARY | 2019-04-13 20:37 | XMS REPORT | Clinical Summary ---
Author Author [facility] Address Unknown Phone Unavailable Care Team Providers Care Wholesale Buyer Name Role Phone Ya Alicia MD PCP [...] information, tracie brown contact: Jose D Carrero [address] [place] [address]
--- OUTSIDE RECORDS SUMMARY | 2019-04-13 20:37 | XMS REPORT | Continuity of Care Document ---
Author Author [facility] Address Unknown Phone Unavailable Care Team Providers Care Environmental Management Specialist Name Role Phone [employer] Unavailable Unavailable Problems Problem Status [...] Vikram Redding Osteoporosis Active Problem 03/30/2019 Vikram Reddign Osteopenia of multiple sites Active Problem 03/30/2019 [...]
[2019-04-13] MEDS: SODIUM CHLORIDE 0.9% 1000ML 1,000 ML IV SCH (20:59)
--- NOTE | 2019-04-13 21:15 | NUR ---
PT ARRIVED BY STRETCHER TO ROOM 101. PT IS AAOX3, RR EVEN AND NON-LABORED, ON ROOM AIR. NO S/SX OF DISTRESS NOTED. PT AMBULATORY WITH CANE TO HOSPITAL BED. PT ORIENTED TO HOSPITAL ROOM, CALL LIGHT, PHONE, BED CONTROLS AND LIGHTS. LEFT PT LAYING SEMI FOWLERS IN BED, BED IN LOW LOCKED POSITION, SIDE RAILS UPX2, CALL LIGHT AND PHONE WITHIN REACH.
--- NOTE | 2019-04-13 21:56 | NUR ---
SPOKE WITH MD GIANG CONCERNING CONSULTATION. NO NEW ORDERS.
[2019-04-13 22:12] VITALS: BP 131/58
[2019-04-13] MEDS ORDERED: SODIUM CHLORIDE 0.9% 50ML 50 ML ONE (22:43)
[2019-04-13] MEDS ORDERED: IOPAMIDOL 370 MG/ML 200 ML INFUS..BTL INJ ONE (22:43)
[2019-04-13] MEDS ORDERED: METOPROLOL TART50 MG PO (23:09)
[2019-04-13] MEDS ORDERED: COUMADIN3 MG PO ×2 (23:09)
[2019-04-13] MEDS ORDERED: FISH OIL 1,2001 EAC1 PO (23:09)
[2019-04-13] MEDS ORDERED: LIVALO2 MG PO (23:09)
[2019-04-13] MEDS ORDERED: VITAMIN B12 SHOT INJ (23:09)
[2019-04-13] MEDS ORDERED: FOLIC ACID1 MG PO (23:09)
[2019-04-13] MEDS ORDERED: METHOTREXATE 1 G1 GM INJ (23:09)
[2019-04-13] MEDS ORDERED: UMECLIDINIUM IH (23:09)
[2019-04-13] MEDS ORDERED: VITAMIN D32000 UNI1 PO (23:09)
[2019-04-13] MEDS ORDERED: MELATONIN10 M1 PO (23:09)
[2019-04-13] MEDS ORDERED: AZO CRANBERRY1 EAC1 PO (23:09)
[2019-04-13] MEDS ORDERED: COLESTIPOL HCL1 GM PO (23:09)
[2019-04-13] MEDS ORDERED: ZYRTEC10 M3 PO (23:09)
[2019-04-13] MEDS ORDERED: ESCITALOPRAM OXA5 MG PO (23:09)
[2019-04-13] MEDS ORDERED: FLAX SEED OIL1 EACH PO (23:09)
[2019-04-13] MEDS ORDERED: VOLTAREN100 GM TOP (23:09)
[2019-04-13] MEDS ORDERED: BREO ELLIPTA INH (23:09)
[2019-04-13 23:43] VITALS: BP 109/56
[2019-04-14] VITALS (7 sets, daily range): BP systolic 111–172; BP diastolic 53–76
[2019-04-14] MEDS ORDERED: METRONIDAZOLE 500MG/NS 100ML IV SCH
[2019-04-14] MEDS: METRONIDAZOLE 500MG/NS 100ML 100 ML IV SCH ×4 (01:49→20:46)
[2019-04-14] MEDS: SODIUM CHLORIDE 0.9% 1000ML 1,000 ML IV SCH ×4 (05:27→20:55)
[2019-04-14] MEDS: CEFEPIME 1GM/NS 0.9% 50 ML 50 ML IV SCH ×2 (05:27→17:30)
--- NOTE | 2019-04-14 07:30 | NUR ---
PT UP IN BED NO DISTRESS NTOED,DENIES PAIN,
[2019-04-14 08:24] LABS: INR 1.65; PROTHROMBIN TIME 20.1 seconds (11.9-14.5)
--- NOTE | 2019-04-14 08:45 | NUR ---
DR GIANG HERE,ORDERS WRITTEN
[2019-04-14] MEDS: METOPROLOL TARTRATE 50 MG TAB PO SCH ×2 (09:00→20:46)
--- NOTE | 2019-04-14 11:56 | Consultation ---
DATE OF CONSULTATION: 04/14/2019 HISTORY OF PRESENT ILLNESS: The patient is a 73-year-old female, presents with complaints of abdominal pain started yesterday. The pain started in the epigastrium, now localized to right lower quadrant. She came to the emergency room where evaluation and CT scan of the abdomen and pelvis revealed findings suggestive of acute appendicitis. The patient has not had any fever. She says her pain is slightly less than yesterday. PAST MEDICAL HISTORY: Significant for aortic stenosis and she has had previous aortic valve replacement. She has a history of elevated cholesterol, hypertension. MEDICATIONS: She is on multiple medications, which are listed in the chart and she is on warfarin. PAST SURGICAL HISTORY: Previous surgeries besides aortic valve replaced includes bilateral total knee replacement. ALLERGIES: SHE HAS ALLERGY TO PENICILLIN, ASPIRIN, AND AZITHROMYCIN. FAMILY HISTORY: Noncontributory. SOCIAL HISTORY: The patient does not smoke cigarettes or drink alcohol. REVIEW OF SYSTEMS: As stated above, otherwise was negative. PHYSICAL EXAMINATION: GENERAL: The patient is awake and alert, in no distress. VITAL SIGNS: Normal. She is afebrile. HEENT: Sclerae are nonicteric. NECK: Supple. No masses. LUNGS: Equal breath sounds are clear bilaterally. CARDIAC: Regular rate and rhythm with no murmur. There is a healed sternotomy wound. ABDOMEN: Tender in the right lower quadrant with signs of peritonitis localized to right lower quadrant. There is no mass. There was no organomegaly. EXTREMITIES: Have no edema. Peripheral pulses are palpable. NEUROLOGIC: Intact. ASSESSMENT: A 73-year-old female with acute appendicitis. She will benefit from appendectomy. She will plan to schedule for today. Procedure was explained to the patient including risks, benefits, and alternatives. She understands the procedure. She has had the opportunity to ask questions. She is aware of the possible need for open surgery. Thank you for asking me to see Ms. Cox. MD TYRA Ramirez/BRAXTON /[id number]
--- NOTE | 2019-04-14 12:25 | NUR ---
pt transported to or via w/c
[2019-04-14] MEDS ORDERED: BUPIVACAINE HCL 0.5% INJ 30 ML VIAL INJ ONE (12:41)
[2019-04-14] MEDS ORDERED: ACETAMINOPHEN 325 MG TAB PO PRN (14:00)
[2019-04-14] MEDS ORDERED: MORPHINE SULFATE INJ 4 MG/ML INJ 1ML IV PRN (14:00)
[2019-04-14] MEDS ORDERED: ONDANSETRON HCL INJ 2MG/ML 2ML 2 MG/ML VIAL IV PRN (14:00)
[2019-04-14] MEDS ORDERED: ESCITALOPRAM OXALATE 10 MG TAB PO SCH (14:00)
--- NOTE | 2019-04-14 14:27 | Operative Report ---
DATE OF PROCEDURE: 04/14/2019 SURGEON: Aayush Salgado MD PREOPERATIVE DIAGNOSIS: Acute appendicitis POSTOPERATIVE DIAGNOSIS: Acute appendicitis. PROCEDURE: Laparoscopic appendectomy. TARGET TRIMMER: None. ANESTHESIA: General endotracheal. INDICATIONS AND FINDINGS: The patient is a 73-year-old female, admitted with complaints of abdominal pain for one day, localized in right lower quadrant. Surgery based on acutely inflamed appendix. TECHNIQUE: After adequate general endotracheal anesthesia with the patient in supine position, the abdomen was prepped and draped in sterile fashion with ChloraPrep solution. Skin in the umbilicus was infiltrated with 0.5% Marcaine. Incision was made in the umbilicus, abdominal wall was elevated, and Veress needle was introduced. Pneumoperitoneum was then created. A 10 mm trocar and cannula was then passed through the umbilical wound. Laparoscopic camera was introduced. Initial laparoscopy revealed acutely inflamed appendix. A 12 mm trocar and cannula was placed suprapubically and a 5 mm trocar and cannula placed in the right upper quadrant. These were placed under direct vision. The cecum was elevated. A window was created in the base of the appendix and the mesoappendix. The base of the appendix was divided close to the cecum with Endo HAMILTON stapler. The mesoappendix was also divided with the Endo HAMILTON stapler freeing the appendix completely. The appendix was placed into an Endopouch and brought out through the suprapubic cannula, care was taken to not touch the abdominal wall. A small amount of bleeding from the mesoappendix was controlled with hemoclips and hemostasis achieved. The area of appendectomy was inspected for hemostasis, which was seen to be adequate, it was irrigated with saline, all fluid aspirated, inspected once again for hemostasis which was seen to be adequate. Instruments and cannulas were removed, pneumoperitoneum was evacuated. Wounds were then closed, fascia in the umbilical and suprapubic wounds closed with 0 Vicryl, skin to all wounds closed with 4-0 Vicryl in subcuticular fashion. Steri-Strips and sterile dressing were applied. The patient tolerated the procedure well, estimated blood loss was 20 mL, there were no complications, all counts were correct and the patient was taken to the recovery room in satisfactory condition. MD TYRA Ramirez/PEGL /[id number] cc: Manfred Freire MD
--- NOTE | 2019-04-14 14:30 | NUR ---
PT RETURNED TO ROOM VIA STRETCHER AAOX3,DENIES PAIN IVF INFUSIGN TO RT UA.
[2019-04-14] MEDS ORDERED: MEPERIDINE HCL INJ 25 MG/ML VIAL ONE (14:35)
[2019-04-14] MEDS ORDERED: KETAMINE HCL INJ 50 MG/ML 10 ML VIAL ONE (15:04)
[2019-04-14] MEDS ORDERED: FENTANYL CITRATE/PF 100MCG/2 ML INJ ONE (15:04)
[2019-04-14] MEDS ORDERED: MIDAZOLAM HCL 2 MG/2 ML VIAL ONE (15:04)
--- NOTE | 2019-04-14 16:53 | NUR ---
pt up in bed no c/o pain,tolerated clear liquid well
--- NOTE | 2019-04-14 18:44 | NUR ---
WALKING ROUNDS PERFORMED, RECEIVED PT LAYING SEMI FOWLERS IN BED, AAOX3, RR EVEN AND NON-LABORED, ON ROOM AIR. NO S/SX OF DISTRESS NOTED. TROCAR SITES TO ANTERIOR ABD NOTED TO BE CDI. LEFT PT LAYING SEMI FOWLERS IN BED, BED IN LOW LOCKED POSITION, SIDE RAILS UP X2, CALL LIGHT AND PHONE WITHIN REACH.
[2019-04-14] MEDS: HYDROCODONE/APAP 5MG-325MG TAB PO PRN (23:21)
[2019-04-15] VITALS: BP 130/62
[2019-04-15] MEDS: METRONIDAZOLE 500MG/NS 100ML 100 ML IV SCH ×2 (01:28→08:00)
[2019-04-15 04:00] VITALS: BP 130/60
[2019-04-15 05:24] LABS: BASOPHILS % 0.3 % (0.0-1.0); EOSINOPHILS # (AUTO) 0.1 (0.0-0.4); EOSINOPHILS % 0.3 % (0.0-6.0); HEMATOCRIT 38.9 % (34.2-44.1); HEMOGLOBIN 12.5 g/dL (12.0-16.0); LYMPHOCYTES # (AUTO) 1.1 (1.0-3.2); LYMPHOCYTES % 7.1 % (18.0-39.1); MEAN CORPUSCULAR HEMOGLOBIN 32.1 pg (28-32); MEAN CORPUSCULAR HGB CONC 32.1 g/dL (31-35); MONOCYTES # (AUTO) 1.1 (0.2-0.8); NEUTROPHILS # (AUTO) 12.8 (2.1-6.9); NEUTROPHILS % 84.6 % (38.7-80.0); PLATELET COUNT 217 x10e3/uL (140-360); RED BLOOD COUNT 3.89 x10e6/uL (3.6-5.1); RED CELL DISTRIBUTION WIDTH 13.9 % (11.7-14.4)
[2019-04-15 05:42] LABS: ANION GAP 13.3 mmol/L (8-16); BLOOD UREA NITROGEN 6 mg/dL (7-26); BUN/CREATININE RATIO 9 (6-25); CALCIUM 8.2 mg/dL (8.4-10.2); CARBON DIOXIDE 24 mmol/L (22-29); CHLORIDE 110 mmol/L (98-107); CREATININE, SERUM 0.66 mg/dL (0.57-1.11); EST GLOMERULAR FILTRATION RATE > 60 ML/MIN (60-); GLUCOSE 105 mg/dL (74-118); POTASSIUM 4.3 mmol/L (3.5-5.1); SODIUM 143 mmol/L (136-145)
[2019-04-15] MEDS: CEFEPIME 1GM/NS 0.9% 50 ML 50 ML IV SCH (05:56)
[2019-04-15] MEDS ORDERED: UMECLIDINIUM INH SCH (06:00)
[2019-04-15] MEDS: HYDROCODONE/APAP 5MG-325MG TAB PO PRN (06:30)
--- NOTE | 2019-04-15 07:30 | NUR ---
PT UP IN BED AWAKE,DENIES PAIN,IV PATENT.
[2019-04-15 08:01] VITALS: BP 130/60
[2019-04-15 08:29] VITALS: BP 145/64
[2019-04-15] MEDS: METOPROLOL TARTRATE 50 MG TAB PO SCH (09:00)
--- NOTE | 2019-04-15 10:00 | Discharge Summary ---
DISCHARGE DIAGNOSES: 1. Status post laparoscopic appendectomy. 2. Paroxysmal atrial fibrillation, on warfarin. 3. Rheumatoid arthritis. HOSPITAL COURSE: Ms. Cox is a pleasant 73-year-old lady, patient of Dr. Ya Alicia, who has past medical history significant for ulcerative colitis, aortic stenosis, chronic atrial fibrillation, hypertension, rheumatoid arthritis, and osteoporosis. She presented to the hospital with complaints of sudden onset of abdominal pain, which was mainly in the hypogastric area and the right lower quadrant, this was followed by nausea and vomiting and as the pain did not improve, she came to the emergency department for evaluation. She was found to have acute appendicitis. She was admitted to the hospital. She was started on IV fluids and IV antibiotics. A consult was requested with Dr. Salgado. She was taken the following day for laparoscopic appendectomy. This was performed without any complications. The patient has ambulated well and she is now tolerating a soft GI diet, she has minimal amount of pain, no nausea, no vomiting, and she is being discharged home in stable condition. She is to follow up with Dr. Salgado and follow up with her primary care physician. MD REY Fraga/BRAXTON /[id number]
--- NOTE | 2019-04-15 11:02 | NUR ---
PT DISCHARGED HOME,IV DCD WITHOUT REDNESS OR SWELLING,PRESCRIPTIONS AND INSTRUCTIONS GIVEN ,COPY ON CHART.TRANSPORTED TO AUTO VIA W/C
== END 2019-04-15 10:54 | disposition home or self-care (01) ==
LOC: ER 14:18 → ERHOLD 20:31 → MED/SURG 21:15
PROVIDERS: ADMIT Internal Medicine; ATTEND Internal Medicine
DX: K35.80 Unspecified acute appendicitis (principal); I10 Essential (primary) hypertension; E78.5 Hyperlipidemia, unspecified; Z88.6 Allergy status to analgesic agent; Z88.0 Allergy status to penicillin; Z88.8 Allergy status to other drugs, medicaments and biological substances; E78.00 Pure hypercholesterolemia, unspecified; Z95.2 Presence of prosthetic heart valve; Z82.49 Family history of ischemic heart disease and other diseases of the circulatory system; E86.0 Dehydration; I35.0 Nonrheumatic aortic (valve) stenosis; M06.9 Rheumatoid arthritis, unspecified; R73.03 Prediabetes; I48.0 Paroxysmal atrial fibrillation; Z79.01 Long term (current) use of anticoagulants; J44.9 Chronic obstructive pulmonary disease, unspecified; K44.9 Diaphragmatic hernia without obstruction or gangrene; R19.7 Diarrhea, unspecified
CPT/HCPCS: 36415 ×3; 44970; 74177; 80048; 80053; 81001; 82150; 83690; 83735; 85025 ×2; 85610 ×2; 85730; 87086; 88304; 99284; G0378 ×3; J0692 ×3; J1100; J2001; J2175; J2250; J2270 ×2; J2405; J2704; J3490; J7030 ×2; Q0162; Q9967; J3010

== ENCOUNTER → 2019-07-16 | Day surgery (SDC) | payer MEDICARE, BC ==
[2019-07-13 11:00] LABS: BASOPHILS # (AUTO) 0.1 (0.0-0.1); BASOPHILS % 0.6 % (0.0-1.0); EOSINOPHILS # (AUTO) 0.5 (0.0-0.4); EOSINOPHILS % 5.6 % (0.0-6.0); HEMOGLOBIN 14.2 g/dL (12.0-16.0); LYMPHOCYTES # (AUTO) 1.3 (1.0-3.2); LYMPHOCYTES % 13.9 % (18.0-39.1); MEAN CORPUSCULAR HEMOGLOBIN 32.4 pg (28-32); MEAN CORPUSCULAR VOLUME 98.2 fL (81-99); MONOCYTES # (AUTO) 1.1 (0.2-0.8); MONOCYTES % 11.6 % (4.4-11.3); NEUTROPHILS # (AUTO) 6.2 (2.1-6.9); PLATELET COUNT 232 x10e3/uL (140-360); RED BLOOD COUNT 4.38 x10e6/uL (3.6-5.1); RED CELL DISTRIBUTION WIDTH 13.7 % (11.7-14.4)
[2019-07-13 11:01] LABS: BILIRUBIN,URINE NEGATIVE (NEGATIVE); CLARITY,URINE SL CLOUDY (CLEAR); COLOR,URINE YELLOW (YELLOW); KETONES,URINE NEGATIVE (NEGATIVE); LEUKOCYTE ESTERASE ,URINE TRACE (NEGATIVE); NITRITE,URINE NEGATIVE (NEGATIVE); PROTEIN,URINE DIPSTICK NEGATIVE (NEGATIVE); URINE UROBILINOGEN 0.2 mg/dL (0.2 - 1)
[2019-07-13 11:20] LABS: ALANINE AMINOTRANSFERASE 20 IU/L (0-55); ALBUMIN 3.4 g/dL (3.5-5.0); ALKALINE PHOSPHATASE 72 IU/L (40-150); ANION GAP 11.2 mmol/L (8-16); BLOOD UREA NITROGEN 11 mg/dL (7-26); BUN/CREATININE RATIO 16 (6-25); CALCIUM 9.4 mg/dL (8.4-10.2); CARBON DIOXIDE 29 mmol/L (22-29); CHLORIDE 102 mmol/L (98-107); CREATININE, SERUM 0.68 mg/dL (0.57-1.11); EST GLOMERULAR FILTRATION RATE > 60 ML/MIN (60-); GLUCOSE 102 mg/dL (74-118); POTASSIUM 4.2 mmol/L (3.5-5.1); SODIUM 138 mmol/L (136-145)
--- NOTE | 2019-07-13 11:38 | Diagnostic Imaging Report ---
EXAMINATION: CHEST 2 VIEWS INDICATION: Pre-operative COMPARISON: CT abdomen and pelvis of 04/13/2019 FINDINGS: LINES/TUBES:None LUNGS:The lungs are moderately inflated. No focal consolidation or pulmonary edema. Bibasilar subsegmental atelectasis. PLEURA:No pleural effusion or pneumothorax. MEDIASTINUM: Postoperative findings of prior CABG and valve replacement. BONES/SOFT TISSUES:No acute osseous injury. Focal kyphosis at the lower thoracic/upper lumbar spine with grade 1 retrolisthesis at L1-2. ABDOMEN:No free air under the diaphragm. IMPRESSION: Bibasilar subsegmental atelectasis. No focal pneumonia or pulmonary edema. Signed by: Marleny Dubose MD on 07/13/2019 11:34 AM
[~2019-07-16] MED LIST changes: +ALLEGRA ALLERGY60 MG PO; +AZO CRANBERRY1 EAC1 PO; +BREO ELLIPTA INH; +COLESTIPOL HCL1 GM PO; +COUMADIN3 MG PO; +DEXAMETHASONE SOD PHOS INJ 4 MG/ML VIAL ONE; +ESCITALOPRAM OXA5 MG PO; +FENTANYL CITRATE/PF 100MCG/2 ML INJ ONE; +FISH OIL 1,2001 EAC1 PO; +FLAX SEED OIL1 EACH PO; +FOLIC ACID1 MG PO; +LEVOFLOXACIN 250MG/D5W 50ML 50 ML ONE; +LIDOCAINE HCL 2% LOCAL INJ 5 ML SDV VIAL INJ ONE; +LIVALO2 MG PO; +MELATONIN10 M1 PO; +METHOTREXATE 1 G1 GM INJ; +METOPROLOL TART50 MG PO; +ONDANSETRON HCL INJ 2MG/ML 2ML 2 MG/ML VIAL ONE; +PROPOFOL IV EMULSION 10 MG/ML 20 ML VIAL ONE; +SEVOFLURANE INHAL SOLN 250 ML PEN BTL ONE; +SILVER NITRATE SWABS ONE; +UMECLIDINIUM IH; +VENTOLIN HFA18 GM INH; +VITAMIN B12 SHOT INJ; +VITAMIN D32000 UNI1 PO; +VOLTAREN100 GM TOP; +ZYRTEC10 M3 PO
[2019-07-16 08:36] LABS: INR 0.83; PROTHROMBIN TIME 11.9 seconds (11.9-14.5)
[2019-07-16 08:37] LABS: PARTIAL THROMBOPLASTIN TIME 35.7 seconds (23.8-35.5)
[2019-07-16 12:10] VITALS: BP 143/67
--- NOTE | 2019-07-16 14:17 | Operative Report ---
DATE OF PROCEDURE: 07/16/2019 SURGEON: Aayush Amos MD PREOPERATIVE DIAGNOSIS: Postmenopausal bleeding, inadequate office endometrial biopsy, rule out endometrial cancer. POSTOPERATIVE DIAGNOSIS: Endometrial polyps, pending pathology. TITLE OF PROCEDURES: Hysteroscopy, D and C with excision of endometrial polyps. ANESTHESIA: General with Dr. Adrian and Ellen, surgical assistant certified. INDICATIONS FOR OPERATION: The patient is a 73-year-old, 1, para 1 with postmenopausal bleeding. Endometrial biopsy was unsuccessful in the office. The patient's mother had endometrial cancer at about this age. The patient is therefore here for D and C, hysteroscopy to rule out endometrial cancer. She therefore taken to the operating room at this time. FINDINGS OF SURGERY: The endometrial cavity was well visualized with multiple polyps noted, mostly large ones from the anterior surface of the uterus and a small polyp on the posterior surface of the uterus. Also, the polyps were excised with the D and C and traction with the Sopher forceps. One small polyp in the right fundal area of the cornua could not be removed. Good hemostasis was noted after the procedure. DESCRIPTION OF PROCEDURE: The patient was taken to the operating room, placed on the table in the supine position, and general anesthesia was administered. The patient was placed in the lithotomy position. The perineum was prepared and draped in the usual sterile manner. Pelvic exam revealed a grade 2 cystocele. Normal size, anteverted uterus with no adnexal masses. The weighted speculum was placed in the posterior vaginal wall and then with the aid of a right angle retractor, the anterior lip of the cervix was grasped with single-tooth tenaculum and with Brooke dilators. The endocervical canal was dilated up to #21. Then, the hysteroscope was placed with the finding of multiple large polyps from the anterior surface of the uterus and one small polyp on the posterior surface of the uterus. The left ostia could be seen, however, the right ostia could not be seen because of the polyps. At this point, attempt was made to make a biopsy of the polyp and then, the decision was made to proceed with curettage. Curettage was performed. Some tissue was obtained and sent to pathology. We reinserted the hysteroscope and found that a large portion of the polyp was still there, so attempt was made to grasp the polyp with Sopher forceps was successful. Multiple polyps were removed this way and sent to pathology for definitive diagnosis. We reinspected and found that the posterior wall polyp was still there. It was excised with the hysteroscopic biopsies and then, it was apparent the cavity could be well seen. The right ostia as well as left ostia could be well seen. However, there was still a small polyp on the right fundal area, which could not be excised despite repeated curettage. It was not able to be removed in its entirety, however, most of it was excised. At this point, the procedure was deemed terminated. There was no bleeding within the endometrial cavity. All instruments were removed. Fluid loss was minimal from the hysteroscopy. The patient tolerated the procedure well and was transferred from the operating room to recovery room in stable condition. MD AMALIA Jansen/MODL /[id number]
== END | disposition home or self-care (01) ==
LOC: OR 07:19
PROVIDERS: ATTEND Obstetrics & Gynecology
DX: N95.0 Postmenopausal bleeding (principal); N84.0 Polyp of corpus uteri; K21.9 Gastro-esophageal reflux disease without esophagitis; K44.9 Diaphragmatic hernia without obstruction or gangrene; K51.90 Ulcerative colitis, unspecified, without complications; J45.909 Unspecified asthma, uncomplicated; Z79.01 Long term (current) use of anticoagulants; Z95.2 Presence of prosthetic heart valve; Z01.810 Encounter for preprocedural cardiovascular examination; Z01.812 Encounter for preprocedural laboratory examination; Z01.811 Encounter for preprocedural respiratory examination; Z88.1 Allergy status to other antibiotic agents; Z88.0 Allergy status to penicillin; Z88.8 Allergy status to other drugs, medicaments and biological substances
CPT/HCPCS: 36415 ×2; 58558; 71046; 80053; 81003; 85025; 85610; 85730; 88305; 93005; J1100; J1956; J2001; J2405; J2704; J3010

== ENCOUNTER → 2020-03-31 | Outpatient (CLI) | payer MEDICARE, BC, OTHER ==
[~2020-03-31] MED LIST changes: +BUSPIRONE HCL5 MG PO; +CIPRO500 MG PO; -DEXAMETHASONE SOD PHOS INJ 4 MG/ML VIAL ONE; -FENTANYL CITRATE/PF 100MCG/2 ML INJ ONE; -LEVOFLOXACIN 250MG/D5W 50ML 50 ML ONE; -LIDOCAINE HCL 2% LOCAL INJ 5 ML SDV VIAL INJ ONE; -ONDANSETRON HCL INJ 2MG/ML 2ML 2 MG/ML VIAL ONE; -PROPOFOL IV EMULSION 10 MG/ML 20 ML VIAL ONE; -SEVOFLURANE INHAL SOLN 250 ML PEN BTL ONE; -SILVER NITRATE SWABS ONE; +[UNRECOGNIZED DRUG - OTHER] PO
[2020-03-31 15:28] LABS: BASOPHILS # (AUTO) 0.1 (0.0-0.1); BASOPHILS % 0.6 % (0.0-1.0); EOSINOPHILS # (AUTO) 0.9 (0.0-0.4); EOSINOPHILS % 11.1 % (0.0-6.0); HEMATOCRIT 42.5 % (34.2-44.1); HEMOGLOBIN 13.3 g/dL (12.0-16.0); LYMPHOCYTES # (AUTO) 1.8 (1.0-3.2); LYMPHOCYTES % 21.8 % (18.0-39.1); MEAN CORPUSCULAR HEMOGLOBIN 31.8 pg (28-32); MEAN CORPUSCULAR HGB CONC 31.3 g/dL (31-35); MEAN CORPUSCULAR VOLUME 101.7 fL (81-99); MONOCYTES # (AUTO) 0.9 (0.2-0.8); MONOCYTES % 11.7 % (4.4-11.3); NEUTROPHILS # (AUTO) 4.4 (2.1-6.9); NEUTROPHILS % 54.6 % (38.7-80.0); PLATELET COUNT 223 x10e3/uL (140-360); RED BLOOD COUNT 4.18 x10e6/uL (3.6-5.1); RED CELL DISTRIBUTION WIDTH 13.2 % (11.7-14.4)
--- NOTE | 2020-04-03 07:15 | NUR ---
SPIRITUAL CARE - Pre-Surgery Assessment: Pt in bed. Pt reported supportive attention from family and friends. Intervention: Wood Stainer provided pastoral presence, hospitality, and sympathetic listening. Acquainted pt with availability of civil celebrant while hospitalized. Outcome: Pt expressed appreciation for visit. No need for follow up indicated at this time. NANI Starr Spiritual Care Department O: [phone]
== END | disposition home or self-care (01) ==
LOC: RAD 05:00 → OR 04-03 05:25 → EDSTATUS 04-03 07:30
PROVIDERS: ATTEND Internal Medicine Gastroenterology
DX: K51.00 Ulcerative (chronic) pancolitis without complications (principal); Z53.8 Procedure and treatment not carried out for other reasons; Z01.810 Encounter for preprocedural cardiovascular examination; Z01.812 Encounter for preprocedural laboratory examination; Z11.59 Encounter for screening for other viral diseases
CPT/HCPCS: 36415; 85025; 87635; 93005

== ENCOUNTER → 2020-08-20 | Day surgery (SDC) | payer MEDICARE, BC ==
[2020-08-15 10:21] LABS: BASOPHILS # (AUTO) 0.1 (0.0-0.1); BASOPHILS % 0.7 % (0.0-1.0); EOSINOPHILS % 9.6 % (0.0-6.0); HEMATOCRIT 42.2 % (34.2-44.1); HEMOGLOBIN 13.3 g/dL (12.0-16.0); LYMPHOCYTES # (AUTO) 1.6 (1.0-3.2); LYMPHOCYTES % 14.5 % (18.0-39.1); MEAN CORPUSCULAR HEMOGLOBIN 31.2 pg (28-32); MEAN CORPUSCULAR HGB CONC 31.5 g/dL (31-35); MEAN CORPUSCULAR VOLUME 99.1 fL (81-99); MONOCYTES # (AUTO) 1.2 (0.2-0.8); MONOCYTES % 10.9 % (4.4-11.3); NEUTROPHILS # (AUTO) 6.9 (2.1-6.9); PLATELET COUNT 248 x10e3/uL (140-360); RED BLOOD COUNT 4.26 x10e6/uL (3.6-5.1); RED CELL DISTRIBUTION WIDTH 13.2 % (11.7-14.4)
[~2020-08-20] MED LIST changes: +AMPICILLIN 1 GM ONE; +AMPICILLIN SOD IV ONE; +GENTAMICIN 80MG/NS 100 ML 0 ML IV ONE; +GENTAMICIN SULFATE 40 MG/ML 2 ML VIAL ONE; +LIDOCAINE HCL 2% LOCAL INJ 5 ML SDV VIAL INJ ONE; +NS IV ONE; +PROPOFOL IV EMULSION 10 MG/ML 20 ML VIAL ONE; +VANCOMYCIN 1GM/NS 250 ML 0 ML ONE
[2020-08-20 12:00] VITALS: BP 131/58
== END | disposition home or self-care (01) ==
LOC: OR 09:35
PROVIDERS: ATTEND Internal Medicine Gastroenterology
DX: K51.00 Ulcerative (chronic) pancolitis without complications (principal); Z86.010 Personal history of colon polyps; K31.7 Polyp of stomach and duodenum; K29.00 Acute gastritis without bleeding; K21.9 Gastro-esophageal reflux disease without esophagitis; K44.9 Diaphragmatic hernia without obstruction or gangrene; K64.8 Other hemorrhoids; Z71.3 Dietary counseling and surveillance; E66.9 Obesity, unspecified; J44.9 Chronic obstructive pulmonary disease, unspecified; M06.9 Rheumatoid arthritis, unspecified; I48.91 Unspecified atrial fibrillation; Z88.1 Allergy status to other antibiotic agents; Z88.0 Allergy status to penicillin; Z01.810 Encounter for preprocedural cardiovascular examination; Z01.812 Encounter for preprocedural laboratory examination; Z20.828 Contact with and (suspected) exposure to other viral communicable diseases; Z68.37 Body mass index [BMI] 37.0-37.9, adult
CPT/HCPCS: 36415; 43239; 45380; 85025; 88305; 88312; 93005; J1580; J2001; J2704; U0002; 88304; J0290; J3370

== ENCOUNTER 2022-04-18 08:06 | Emergency (ER) | payer MEDICARE, BC ==
[~2022-04-18] VITALS: Ht 157.5 cm; Wt 93.4 kg
[~2022-04-18 08:06] MED LIST changes: -AMPICILLIN 1 GM ONE; -AMPICILLIN SOD IV ONE; -GENTAMICIN 80MG/NS 100 ML 0 ML IV ONE; -GENTAMICIN SULFATE 40 MG/ML 2 ML VIAL ONE; -LIDOCAINE HCL 2% LOCAL INJ 5 ML SDV VIAL INJ ONE; -NS IV ONE; -PROPOFOL IV EMULSION 10 MG/ML 20 ML VIAL ONE; -VANCOMYCIN 1GM/NS 250 ML 0 ML ONE
[2022-04-18 10:29] VITALS: BP 124/69
== END 2022-04-18 10:30 | disposition home or self-care (01) ==
LOC: ER 08:15
DX: R04.0 Epistaxis (principal); I10 Essential (primary) hypertension; E78.5 Hyperlipidemia, unspecified; J44.9 Chronic obstructive pulmonary disease, unspecified; D64.9 Anemia, unspecified; I25.10 Atherosclerotic heart disease of native coronary artery without angina pectoris; E78.00 Pure hypercholesterolemia, unspecified; F41.9 Anxiety disorder, unspecified
CPT/HCPCS: 70450; 99284

== ENCOUNTER → 2022-09-08 | Day surgery (SDC) | payer MEDICARE, BC ==
[2022-08-30 12:08] LABS: BASOPHILS # (AUTO) 0.1 (0.0-0.1); BASOPHILS % 0.5 % (0.0-1.0); EOSINOPHILS # (AUTO) 0.9 (0.0-0.4); HEMATOCRIT 46.3 % (34.2-44.1); LYMPHOCYTES # (AUTO) 2.7 (1.0-3.2); MEAN CORPUSCULAR HEMOGLOBIN 29.9 pg (28-32); MEAN CORPUSCULAR HGB CONC 30.2 g/dL (31-35); MEAN CORPUSCULAR VOLUME 98.7 fL (81-99); MONOCYTES # (AUTO) 0.9 (0.2-0.8); NEUTROPHILS # (AUTO) 5.1 (2.1-6.9); NEUTROPHILS % 53.2 % (38.7-80.0); PLATELET COUNT 259 x10e3/uL (140-360); RED BLOOD COUNT 4.69 x10e6/uL (3.6-5.1); RED CELL DISTRIBUTION WIDTH 13.7 % (11.7-14.4)
[~2022-09-08] MED LIST changes: +FISH OIL 1,2001 EACH PO; +LIDOCAINE HCL 2% LOCAL INJ 5 ML SDV VIAL INJ ONE; +POVIDONE IODINE 0.05% 0.05 % ML PO ONE; +PROPOFOL IV EMULSION 10 MG/ML 20 ML VIAL ONE; +REMICADE100 MG/VIA IV; +SODIUM CHLORIDE 0.9% 250ML 250 ML ONE; +TRELEGY ELLIPT1 EACH; +TRICOR145 MG PO; +VITAMIN E400 UNI1 PO; +Vancomycin IV 1 GM VIAL ONE; +XARELTO20 MG PO; +XYZAL5 MG PO; +[UNRECOGNIZED DRUG - OTHER] PO
[2022-09-08 12:55] VITALS: BP 114/54
== END | disposition home or self-care (01) ==
LOC: OR 09:21
PROVIDERS: ATTEND Internal Medicine Gastroenterology
DX: K51.90 Ulcerative colitis, unspecified, without complications (principal); Z86.010 Personal history of colon polyps; K64.8 Other hemorrhoids; K21.9 Gastro-esophageal reflux disease without esophagitis; K44.9 Diaphragmatic hernia without obstruction or gangrene; K76.0 Fatty (change of) liver, not elsewhere classified; I48.91 Unspecified atrial fibrillation; J44.9 Chronic obstructive pulmonary disease, unspecified; M06.9 Rheumatoid arthritis, unspecified; E78.5 Hyperlipidemia, unspecified; Z88.0 Allergy status to penicillin; Z01.810 Encounter for preprocedural cardiovascular examination; Z01.812 Encounter for preprocedural laboratory examination; Z79.02 Long term (current) use of antithrombotics/antiplatelets; Z79.899 Other long term (current) drug therapy
CPT/HCPCS: 36415; 45380; 85025; 93005; J2001; J2704; J3370; J7050